=== PATIENT | female | born 1975 | race Caucasian/White ===

== ENCOUNTER 2016-04-17 21:56 | Emergency (ER) | payer SELFPAY ==
[2016-04-17] MEDS ORDERED: ASPIRIN TABLET 325 MG TAB PO ONE (22:06)
[2016-04-17] MEDS ORDERED: SUCRALFATE 1 GM/10 ML 1 GM UD PO ONE (22:06)
[2016-04-17] MEDS ORDERED: ALUMINUM & MAGNESIUM HYDROXIDE 30 ML UD PO ONE (22:06)
[2016-04-17] MEDS ORDERED: METOPROLOL TARTRATE INJ 5 MG/5 ML VIAL IV ONE (22:06)
[2016-04-17 22:07] VITALS: TEMP 98.1
--- NOTE | 2016-04-17 22:36 | RAD ---
EXAM DESCRIPTION: XR CHEST 1 VIEW CLINICAL HISTORY: chest pain COMPARISON: None FINDINGS: Cardiac silhouette is within normal limits. EKG leads project over the chest. There is no focal parenchymal or pleural disease. There is no acute osseous process visualized. IMPRESSION: No evidence of acute cardiopulmonary disease. Electronically signed by: Kedar Velazquez 04/17/2016 22:34
[2016-04-17] MEDS ORDERED: ENOXAPARIN SODIUM 80 MG/0.8 ML SYG SUBCU ONE (22:49)
[2016-04-17] MEDS ORDERED: NITROGLYCERIN 0.4 MG 25 EA TAB SL ONE (22:51)
--- NOTE | 2016-04-17 23:02 | ED.PDOC ---
History of Present Illness - General Chief Complaint: Chest Pain/IL Time Seen by Provider: 04/17/16 22:06 Source: patient, family Exam Limitations: no limitations - History of Present Illness Initial Comments: the patient is a 40-year-old female presenting to the emergency room after approximately 20-30 minutes ofacute onset chest pain. recurrent large and with her daughter. Chest pain is severe. It is associated with neck pain on the left side as well as something of a feeling of torticollis with her head being twisted to the right. On telemetry this is associated with frequency of PVCs. Upon arrival she was having PVCs every second or third beat. After metoprolol this did improve significantly. pVC subsided. on further questioning, the patient has had a history of recurrent episodes like this just not so severe. They do seem to come on with anxiety and exertion. She has not passed out but has had near syncopal episode with them in the past. She does not have any history of coronary artery disease or valvular disease. She does have a history of gastroesophageal reflux disease and anxiety. She does feel short of breath with chest pain. Timing/Duration: 1/2 hour Severity: severe Improving Factors: medication Associated Symptoms: nausea/vomiting Allergies/Adverse Reactions: Allergies Bismuth Subsalicylate [From Pepto-Bismol] Allergy (Verified 04/17/16 21:57) Review of Systems - Review of Systems Constitutional: States: diaphoresis, weakness EENTM: States: no symptoms reported Respiratory: States: short of breath Cardiology: States: chest pain, palpitations Gastrointestinal/Abdominal: States: no symptoms reported, other - she does have long-standing reflux issues Genitourinary: States: no symptoms reported Musculoskeletal: States: no symptoms reported Skin: States: no symptoms reported Neurological: States: no symptoms reported All other Systems: No Change from Baseline Past Medical History (General) - Patient Medical History Hx Cardiac Disorders: No - Vaccination History Hx Tetanus, Diphtheria Vaccination: No Hx Influenza Vaccination: No Hx Pneumococcal Vaccination: No - Social History Hx Tobacco Use: No Hx Alcohol Use: No Hx Substance Use: No Hx Substance Use Treatment: No Hx Depression: No - Female History Patient is a Female of Child Bearing Age (10 -59 yrs old): Yes Patient : No Family Medical History - Family History Mother Family History: Unknown Living Status: Unknown Physical Exam - Physical Exam General Appearance: Alert, Anxious, Obvious distress Eye Exam: bilateral normal Ears, Nose, Throat: normal ENT inspection, normal pharynx Neck: non-tender, full range of motion - except when the pain is at its worst and then she has the flexion of the neck to the right, supple Respiratory: chest non-tender, lungs clear, normal breath sounds, no respiratory distress, no accessory muscle use Cardiovascular/Chest: normal peripheral pulses, no edema, irregularly irregular - due to PVCs originally Peripheral Pulses: radial,right: 2+, radial,left: 2+, dorsalis pedis,right: 2+, dorsalis pedis,left: 2+ Gastrointestinal/Abdominal: soft, other - mild epigastric discomfort palpation. Rectal Exam: deferred Back Exam: normal inspection Extremity: normal range of motion, non-tender, normal inspection, no pedal edema , normal capillary refill Neurologic: alert, normal mood/affect, oriented x 3 Skin Exam: normal color Comments: Vital Signs - 24 hr 04/17/16 04/17/16 21:59 22:11 Temperature 98.1 F Pulse Rate [ 83 Right] Respiratory 28 H Rate Blood Pressure 142/79 [RA] O2 Sat by Pulse 99 97 Oximetry Progress - Progress Progress: 04/17/16 23:05 the patient is a 40-year-old female with chest pain that is concerning in nature. There is a very mild elevation in the CK-MB at this point and it may rise further. She will need repeat testing upon arrival. Additionally due to the narrow Q waves in inferior and lateral leads, a Doppler echocardiogram is recommended to rule out idiopathic hypertrophic subaortic stenosis. She does have a history of anxiety and gastroesophageal reflux disease which may be contributing to the clinical picture. The patient has received metoprolol, nitroglycerin, oxygen, Lovenox and aspirin as well as a small dose of Xanax and Carafate. She does appear to be doing better at this time. Transferring for higher level of care. - Results/Orders Results/Orders: Laboratory Tests 04/17/16 22:00 WBC 10.7 RBC 4.89 Hgb 15.5 Hct 45.1 MCV 92.3 MCH 31.6 H MCHC 34.3 RDW 12.7 Plt Count 198 MPV 9.4 Absolute Neuts (auto) 5.60 Absolute Lymphs (auto) 3.80 H Absolute Monos (auto) 0.90 H Absolute Eos (auto) 0.30 Absolute Basos (auto) 0.10 Neutrophils % 52.6 Lymphocytes % 35.6 Monocytes % 8.4 Eosinophils % 2.7 Basophils % 0.7 PT 11.1 INR 0.980 PTT (SP) 30.5 D-Dimer, Quantitative < 200 Sodium 138 Potassium 3.7 Chloride 106 Carbon Dioxide 24 Anion Gap 11.7 L BUN 12 Creatinine 1.09 BUN/Creatinine Ratio 11.0 Random Glucose 97 Serum Osmolality 275.4 Calcium 8.8 Magnesium 1.9 Total Bilirubin 0.3 AST 23 ALT 22 Alkaline Phosphatase 48 Creatine Kinase 216 H* CK-MB (CK-2) 4.7 H* CK-MB (CK-2) % 2.18 Troponin I < 0.02 B-Natriuretic Peptide 20.8 Serum Total Protein 7.0 Albumin 4.0 Globulin 3.0 Albumin/Globulin Ratio 1.3 chest x-ray appears benign. Initial EKG shows frequent PVCs. Repeat EKG after metoprolol shows resolution of PVCs. The patient has mild right axis deviation. No acute ST segment changes consistent with ischemia. She does however have narrow Q waves in the inferior and lateral leads that are possibly consistent with idiopathic hypertrophic subaortic stenosis. critical care time spent 35 minutes, inpatient management and procedures not billed separately. Departure - Departure Clinical Impression: Frequent PVCs, Anxiety Chest pain Qualifiers: Chest pain type: unspecified Qualifier Code: (R07.9) Chest pain, unspecified Disposition: Transfer to Hospital Transfer to Outside Facility - Transfer Information Accepting Provider:: dr torres Accepting Facility: [facility] Reason for Transfer: required specialist not available
[2016-04-17 23:36] VITALS: BP 121/78
[2016-04-18 00:07] VITALS: O2SAT 99
== END 2016-04-18 00:04 | disposition short-term general hospital (02) ==
LOC: ER 21:56
DX: I49.3 Ventricular premature depolarization (principal); F41.9 Anxiety disorder, unspecified; R07.9 Chest pain, unspecified; Z88.8 Allergy status to other drugs, medicaments and biological substances
CPT/HCPCS: 36415; 71010; 80053; 81001; 81025; 82550; 82553; 83735; 83880; 84443; 84484; 85025; 85379; 85610; 85730; 93005; J1650; J2060

== ENCOUNTER 2016-05-14 10:00 | Emergency (ER) | payer OTHER ==
[2016-05-14 10:16] VITALS: BP 120/70; TEMP 97.1; O2SAT 98
--- NOTE | 2016-05-14 10:19 | ED.PDOC ---
History of Present Illness - General Chief Complaint: Skin/Abrasion/Tear Stated Complaint: rash under right eye Time Seen by Provider: 05/14/16 10:06 Source: patient, RN notes reviewed, Vital Signs reviewed Exam Limitations: no limitations - History of Present Illness Initial Comments: Patient started with blistery rash under her right eye about a week ago. Thought it was allergy so tried allergy eye drops. Initially helped her symptoms. Over the past 2 night she has developed a swollen, mildly itchy, erythematous area at the inner corner of her right eye. No visual changes. No eyeball changes. She is having discharge in the morning with improves after showering. Timing/Duration: week, getting worse Severity: mild Improving Factors: medication Worsening Factors: nothing Associated Symptoms: blisters, change in skin texture, itching, rash Allergies/Adverse Reactions: Allergies Bismuth Subsalicylate [From Pepto-Bismol] Allergy (Verified 04/17/16 21:57) Home Medications: Ambulatory Orders Desonide [Desowen] 0.05 ml TOP BID #5 ml 05/14/16 Prednisolone Acetate (Ophth) [Pred Forte] 1 drop OPHTH BID #3 ml 05/14/16 Review of Systems - Review of Systems Constitutional: States: no symptoms reported. Denies: chills, fever, malaise EENTM: States: see HPI. Denies: eye pain, blurred vision, tearing, double vision Respiratory: States: no symptoms reported Cardiology: States: no symptoms reported Musculoskeletal: States: no symptoms reported Skin: States: see HPI, change in color, rash Neurological: States: no symptoms reported. Denies: headache Past Medical History (General) - Patient Medical History Hx Cardiac Disorders: No Surgical History: Hysterectomy - Vaccination History Hx Tetanus, Diphtheria Vaccination: No Hx Influenza Vaccination: No Hx Pneumococcal Vaccination: No - Social History Hx Tobacco Use: No Hx Alcohol Use: No Hx Substance Use: No Hx Substance Use Treatment: No Hx Depression: No - Female History Patient : No Family Medical History - Family History Mother Family History: Unknown Living Status: Unknown Physical Exam - Physical Exam General Appearance: Alert, Comfortable, No apparent distress, Well Developed, Well Groomed, Well Hydrated, Well Nourished Eyes, Ears, Nose, Throat Exam: PERRL/EOMI Neck: non-tender, full range of motion, supple, normal inspection Respiratory: no respiratory distress Extremity: normal range of motion, normal inspection, no pedal edema Neurologic: no motor/sensory deficits, alert, normal mood/affect, oriented x 3 Skin Problem Location: face - Inner corner of right eye Skin Character: erythema, rash, swelling, tenderness, warm Lymphatic: no adenopathy Departure - Departure Clinical Impression: Atopic dermatitis Time of Disposition: 10:21 Disposition: Discharge to Home or Self Care Condition: Good Departure Forms: ED Discharge - Pt. Copy, Patient Portal Self Enrollment Instructions: DI for Atopic Dermatitis - Adult Diet: resume usual diet Referrals: Elizabeth Pruitt NP [Primary Care Provider] - 1-5 Days Prescriptions: Desonide [Desowen] 0.05 ml TOP BID #5 ml Prednisolone Acetate (Ophth) [Pred Forte] 1 drop OPHTH BID #3 ml Home Medications: Ambulatory Orders Desonide [Desowen] 0.05 ml TOP BID #5 ml 05/14/16 Prednisolone Acetate (Ophth) [Pred Forte] 1 drop OPHTH BID #3 ml 05/14/16
== END 2016-05-14 10:38 | disposition home or self-care (01) ==
LOC: ER 10:00
DX: L20.9 Atopic dermatitis, unspecified (principal)

== ENCOUNTER → 2016-09-12 | Outpatient (CLI) | payer OTHER ==
--- NOTE | 2016-09-13 14:01 | MAM ---
History: Well woman exam. Date of exam: 09/12/2016 Services provided: Bilateral full field digital screening mammography. CAD, the images were reviewed with R2 computer aided detection. FINDINGS: Glandular tissue is scattered glandular contour. Comparison with 2014 exam. No dominant mass, architectural distortion or clustered microcalcification. Parenchyma bilaterally is stable since 2014. IMPRESSION: Benign exam Recommendation: Routine annual mammography BIRAD CATEGORY: 2 BENIGN Electronically signed by: Jocelyne Mosqueda MD 09/13/2016 2:00 PM CDT Workstation: [id number]
== END ==
LOC: MAMMO 15:00
PROVIDERS: ATTEND Family Medicine
DX: Z12.31 Encounter for screening mammogram for malignant neoplasm of breast (principal)

== ENCOUNTER 2017-07-28 14:12 | Emergency (ER) | payer SELFPAY ==
[2017-07-28 14:23] VITALS: TEMP 98.6
--- NOTE | 2017-07-28 14:41 | ED.PDOC ---
History of Present Illness - General Chief Complaint: Lower Extremity Injury Stated Complaint: left knee pain Time Seen by Provider: 07/28/17 14:18 Source: patient - History of Present Illness Occurred: yesterday Pain - Lower Extremity: moderate: Left Knee Method of Injury: unknown Improving Factors: immobilization Worsening Factors: movement Allergies/Adverse Reactions: Allergies Bismuth Subsalicylate [From Pepto-Bismol] Allergy (Verified 04/17/16 21:57) Home Medications: Ambulatory Orders Desonide [Desowen] 0.05 ml TOP BID #5 ml 05/14/16 Prednisolone Acetate (Ophth) [Pred Forte] 1 drop OPHTH BID #3 ml 05/14/16 Indomethacin ER [Indocin ER] 75 mg PO BID #20 cap 07/28/17 Tramadol HCl 50 mg PO Q6HR PRN #15 tab 07/28/17 Review of Systems - Review of Systems Constitutional: Denies: fever, weakness EENTM: Denies: no symptoms reported Respiratory: Denies: no symptoms reported Cardiology: Denies: no symptoms reported Gastrointestinal/Abdominal: Denies: no symptoms reported Musculoskeletal: States: joint pain, joint swelling. Denies: gout Skin: Denies: change in color, rash Neurological: Denies: numbness, paresthesia Past Medical History (General) - Patient Medical History Hx Seizures: No Hx Stroke: No Hx Dementia: No Hx Asthma: No Hx of COPD: No Hx Cardiac Disorders: No Hx Congestive Heart Failure: No Hx Pacemaker: No Hx Hypertension: Yes Hx Thyroid Disease: No Hx Diabetes: No Hx Gastroesophageal Reflux: No Hx Renal Disease: No Surgical History: other - Vaccination History Hx Tetanus, Diphtheria Vaccination: No Hx Influenza Vaccination: No Hx Pneumococcal Vaccination: No - Social History Hx Tobacco Use: No Hx Alcohol Use: No Hx Substance Use: No Hx Substance Use Treatment: No Hx Depression: No - Female History Patient : No Family Medical History - Family History Mother Family History: Unknown Living Status: Unknown Physical Exam - Physical Exam General Appearance: Alert, Obvious distress Eyes, Ears, Nose, Throat: PERRL/EOMI Neck: full range of motion, normal inspection Thigh/Hip: normal inspection, non-tender Leg: normal inspection, non-tender Knee: joint effusion, limited ROM, pain, soft tissue tenderness - tender over medial joint line, other - positive Frantz's on L Ankle: normal inspection, non-tender Foot: normal inspection, non-tender Neuro/Tendon: normal sensation, normal motor functions Mental Status: alert, oriented x 3 Skin: normal color, warm/dry Progress - EKG/XRAY/CT XRAY: knee - L, neg Departure - Departure Clinical Impression: Meniscal injury Qualifiers: Encounter type: initial encounter Laterality: left Qualified Code(s): S83.8X2A - Sprain of other specified parts of left knee, initial encounter Disposition: Discharge to Home or Self Care Condition: Fair Departure Forms: ED Discharge - Pt. Copy, Patient Portal Self Enrollment Instructions: DI for Leg Pain Referrals: Elizabeth Pruitt NP [Primary Care Provider] - 1-2 Weeks Prescriptions: Tramadol HCl 50 mg PO Q6HR PRN #15 tab PRN Reason: Moderate To Severe Pain Indomethacin ER [Indocin ER] 75 mg PO BID #20 cap Home Medications: Ambulatory Orders Desonide [Desowen] 0.05 ml TOP BID #5 ml 05/14/16 Prednisolone Acetate (Ophth) [Pred Forte] 1 drop OPHTH BID #3 ml 05/14/16 Indomethacin ER [Indocin ER] 75 mg PO BID #20 cap 07/28/17 Tramadol HCl 50 mg PO Q6HR PRN #15 tab 07/28/17
--- NOTE | 2017-07-28 15:15 | RAD ---
EXAM DESCRIPTION: Knee,Left 2 or More Views CLINICAL HISTORY: pain and swelling COMPARISON: None FINDINGS: 3 view(s) submitted. There is a moderate knee joint effusion. There is lateral patellar subluxation. Mild degenerative changes are present. No fracture or dislocation is identified. Bone marrow attenuation is unremarkable. No radiopaque foreign body is identified. IMPRESSION: No acute fracture or dislocation. Electronically signed by: Collin Hannon 07/28/2017 3:14 PM CDT
[2017-07-28 16:05] VITALS: BP 160/88; O2SAT 98
== END 2017-07-28 16:05 | disposition home or self-care (01) ==
LOC: ER 14:12
DX: S83.92XA Sprain of unspecified site of left knee, initial encounter (principal); I10 Essential (primary) hypertension; X58.XXXA Exposure to other specified factors, initial encounter; Y92.9 Unspecified place or not applicable

== ENCOUNTER → 2020-03-01 | Outpatient (CLI) | payer OTHER ==
--- NOTE | 2020-03-02 16:13 | US ---
EXAM DESCRIPTION: 3D Diagnostic, Bilateral (accession [id number]), Breast,Bilateral (accession [id number]): Ultrasound CLINICAL HISTORY: 44 yearsFemale[place]AST [place]MP bilateral palpable masses and skin moles. Sister with ovarian cancer age 28. Menarche age 7. Childbirth age 13. Premenopausal. No HRT. Benign Cyst aspiration right. Lifetime risk of developing breast cancer (Tyrer-Cuzick model)(%): 7.6. COMPARISON: Bilateral screening digital breast 2-D imaging August 2016. TECHNIQUE: Bilateral LM, CC, and MLO projection full-field images, digital tomosynthesis technique. Bilateral 2-D digital full-field images: LM, CC, and MLO projections. CAD available for 2-D images.. Transcutaneous scanning of the bilateral breasts utilizing woodard-scale and Doppler modes. Scanning performed by the patient experience coordinator ; observation by Dr. Alvarenga. FINDINGS: The breast parenchymal density pattern is: Scattered areas of fibroglandular density. No skin thickening or nipple retraction skin marker anterior left breast 13 cm from the nipple at 10:00. Skin marker 8 cm from the nipple at 7:00. Skin mole markers. Solitary microcalcifications. Axillary nodes. No new focal, stellate mass or density, focal asymmetry , and no suspicious microcalcifications bilaterally (taking into account differences in mammographic technique.) Ultrasound: Scanning right breast 4 cm from the nipple at 2:00. Near the skin marker previously described. Mostly fatty echotexture with minimal fibroglandular tissues. No dominant solid mass, no distinct cyst, no fluid collection, no large calcifications or overlying skin changes. Scanning left breast 6 cm from the nipple at 9:00. At the site of the skin marker. Mostly fatty echotexture with minimal fibroglandular tissues. No ultrasound abnormalities. IMPRESSION: Benign exam. BIRAD CATEGORY: 2 BENIGN FINDINGS. RECOMMENDATIONS: FOLLOW UP: Routine digital bilateral mammographic screening, one year interval from February 2020. Written communication explaining the IMPRESSION and follow-up, will be mailed to the patient and referring health care provider. According to the [employer], yearly mammograms are recommended starting at age 40 and continuing as long as a woman is in good health. Any breast change noted on a breast self-exam should be reported promptly to the patient's healthcare provider. Breast MRI is recommended for women with an approximately 20-25% or greater lifetime risk of breast cancer, including women with a strong family history of breast or ovarian cancer and women who have been treated for Hodgkin's disease. A negative mammographic report should not delay tissue diagnosis in patients with significant clinical history or physical findings. Extremely dense breast tissue limits the sensitivity of digital mammography. Electronically signed by: Collin Alvarenga MD 03/02/2020 4:11 PM [facility]
== END ==
LOC: MAMMO 13:55
PROVIDERS: ATTEND Family Medicine
DX: N63.10 Unspecified lump in the right breast, unspecified quadrant (principal); N64.4 Mastodynia
CPT/HCPCS: 76641; 77066; G0279